=== PATIENT | female | born 1955 | race Caucasian/White ===

== ENCOUNTER → 2018-01-21 | Outpatient (CLI) | payer BC ==
[2018-01-21 17:20] LABS: Basophils % (A) 1 %; Eosinophils # (A) 0.1 k/uL (0-0.7); Eosinophils % (A) 2 %; HCT 40.7 % (34.0-46.0); HGB 13.6 gm/dL (11.4-16.0); Lymphocytes # (A) 1.9 k/uL (1.0-4.8); Lymphocytes % (A) 28 %; MCH 29.1 pg (25.0-35.0); MCHC 33.4 g/dL (31.0-37.0); MCV 87.1 fL (80.0-100.0); Monocytes # (A) 0.4 k/uL (0-1.0); Monocytes % (A) 6 %; Neutrophils # (A) 4.2 k/uL (1.3-7.7); Neutrophils % (A) 62 %; Platelet Count 251 k/uL (150-450); RBC 4.68 m/uL (3.80-5.40); RDW 13.6 % (11.5-15.5); WBC 6.8 k/uL (3.8-10.6)
== END | disposition home or self-care (01) ==
LOC: LABPAT 16:09
PROVIDERS: ATTEND Obstetrics & Gynecology
DX: Z01.812 Encounter for preprocedural laboratory examination (principal)
CPT/HCPCS: 36415; 85025

== ENCOUNTER → 2018-02-18 | Day surgery (SDC) | payer BC ==
--- NOTE | 2018-02-17 20:51 | P.HPOB ---
History of Present Illness H&P Date: 02/17/18 Chief Complaint: Recurrent ASCUS This is a 62-year-old female 3 para 3 who presents for loop electrocautery excision procedure for recurrent ASCUS. Her HPV tests have been negative. She did undergo a LEEP procedure in 2013 that did show SHAHBAZ-1. This is her third Pap smear in a row since the LEEP procedure that has shown ASCUS. Her high-risk HPV is negative. In light of the recurrence, the decision is made to proceed with repeat LEEP procedure with colposcopy. Obstetrical history: . History of 3 vaginal deliveries. Gynecologic history: History of recurrent ASCUS. Review of Systems Constitutional: Denies chills, Denies fever Eyes: denies blurred vision, denies pain Ears, nose, mouth and throat: Denies headache, Denies sore throat Cardiovascular: Denies chest pain, Denies shortness of breath Respiratory: Denies cough Gastrointestinal: Denies abdominal pain, Denies diarrhea, Denies nausea, Denies vomiting Genitourinary: Reports vaginal dryness Menstruation: Reports postmenopausal Musculoskeletal: Denies myalgias Integumentary: Denies pruritus, Denies rash Neurological: Denies numbness, Denies weakness Psychiatric: Reports depression, Denies anxiety Endocrine: Denies fatigue, Denies weight change Past Medical History Additional Past Medical History / Comment(s): Osteopenia, ruptured lumbar disc History of Any Multi-Drug Resistant Organisms: None Reported Past Surgical History: Hernia Repair (Left inguinal) Additional Past Surgical History / Comment(s): Bunion removed from right foot. LEEP procedure, in April 2014 Past Anesthesia/Blood Transfusion Reactions: No Reported Reaction Past Psychological History: Depression Smoking Status: Never smoker Past Alcohol Use History: None Reported Past Drug Use History: None Reported - Past Family History Mother Family Medical History: Cancer Additional Family Medical History / Comment(s): Breast cancer Medications and Allergies Home Medications Medication Instructions Recorded Confirmed Type Calcium Carbonate [Calcium] 600 mg PO BID 02/13/18 02/13/18 History Cholecalciferol (Vitamin D3) 2,000 unit PO BID 02/13/18 02/13/18 History [Vitamin D3] Multivitamins, Thera [Multivitamin 1 tab PO DAILY 02/13/18 02/13/18 History (formulary)] Sertraline [Zoloft] 50 mg PO QAM 02/13/18 02/13/18 History Allergies Allergy/AdvReac Type Severity Reaction Status Date / Time No Known Allergies Allergy Verified 02/13/18 09:53 Exam Osteopathic Statement: *. No significant issues noted on an osteopathic structural exam other than those noted in the History and Physical/Consult. HEENT: Within normal limits Heart: Regular rate and rhythm Lungs: Clear to auscultation bilaterally Abdomen: Soft, nontender Pelvic exam: Cervix is multiparous and atrophic with no visible abnormalities seen. Uterus is small, anteverted, with no adnexal masses or tenderness noted. Extremities: Negative Homans Assessment and Plan (1) ASCUS of cervix with negative high risk HPV Status: Acute Code(s): R87.610 - ATYP SQUAM CELL OF UNDET SIGNFC CYTO SMR CRVX (ASC-US) SNOMED Code(s): 131238363 Plan: Proceed with loop electrocautery excision procedure with colposcopy. I have discussed the risks, benefits, and alternative therapies for the above- mentioned procedure and for both sedation/anesthesia as well as necessary blood products administration, if indicated, as they pertain to this patient. The patient has indicated her understanding and acceptance of the risks and procedures discussed.
[~2018-02-18] MED LIST: ACETIC ACID 15 DROPS/ML DROPS MISCELLANE ONE; BUPIVACAINE (PF) 0.5% 30 ML VIAL SQ ONE; DEXAMETHASONE SOD PHOSPHATE 10 MG/ML 1 ML VIAL IV ONE; FERRIC SUBSULFATE (MONSELS) JAR TOPICAL ONE; KETOROLAC 30 MG/ML 1 ML VIAL ONE; LACTATED RINGERS 1,000 ML IV SCH; LIDOCAINE 1% 20 ML VIAL (10MG/ML) FOR IV START INTRADERMA ONE; LIDOCAINE 1% INJ 10MG/ML (20 ML MDV) ONE; LIDOCAINE 1%-EPI 1:100,000 20 ML VIAL SQ ONE; MIDAZOLAM 2 MG/2 ML VIAL IV PRN; MIDAZOLAM 2 MG/2 ML VIAL ONE; ONDANSETRON 4 MG/2 ML VIAL IVP ONE; PROPOFOL 10 MG/ML 20 ML VIAL IV ONE; Pre Op ABX Message 1 EACH MISC MISCELLANE ONE; SCOPOLAMINE 1.5MG/72HR PATCH TRANSDERM ONE; ePHEDrine SULFATE/0.9% NACL/PF 50 MG/5 ML SYRINGE IV ONE; fentaNYL (PF) 50 MCG/ML 2 ML AMP IV PRN; fentaNYL (PF) 50 MCG/ML 2 ML AMP ONE
[2018-02-18 07:10] VITALS: RESP 16
--- NOTE | 2018-02-18 08:03 | P.OP ---
Date of Procedure: 02/18/18 Preoperative Diagnosis: Recurrent ASCUS Postoperative Diagnosis: Same Procedure(s) Performed: Loop electrocautery excision procedure with colposcopy Anesthesia: other (Mask general) Surgeon: Tania Carpenter Estimated Blood Loss (ml): 2 Pathology: other (Ectocervix with 12 o'clock position marked with a suture and pieces of endocervix) Condition: stable Disposition: same day Indications for Procedure: This is a 62-year-old female 3 para 3 who presents for loop electrocautery excision procedure for recurrent ASCUS. Her HPV tests have been negative. She did undergo a LEEP procedure in 2013 that did show SHAHBAZ-1. This is her third Pap smear in a row since the LEEP procedure that has shown ASCUS. Her high-risk HPV is negative. In light of the recurrence, the decision is made to proceed with repeat LEEP procedure with colposcopy. Operative Findings: Questionable small endocervical polyp was visualized. Uterus was retroverted with no adnexal masses palpated. No abnormalities were seen with acetic acid or Lugol solution. Description of Procedure: The patient was taken to the operating room where she is placed in the dorsal lithotomy position. She is prepped and draped in the normal sterile fashion. Bladder is drained with a catheter and then removed. Examination is performed under anesthesia. Uterus is found to be small, retroverted, with no adnexal masses palpated. Next a coated bivalve speculum was placed in the patient's vagina. The cervix was visualized. Colposcopy was performed using a blue light. Cervix was swabbed with 5% acetic acid solution. No abnormalities were visualized. There was noted to be a questionable small endocervical polyp noted. Next the cervix was swabbed with Lugol solution. No abnormalities were visualized. Next the cervix was circumferentially injected with a 50-50 mixture of 1% lidocaine with epinephrine and half percent Marcaine. Approximately 8 mL were used to anesthetize the cervix using a spinal needle. Next a large loop was used with 35 W of cutting power to swipe from left to right removing the entire ectocervix. Next a smaller loop was used to remove portions of the endocervix using a left to right swipe once it appeared the entire transition zone was removed, the procedure was concluded. A ball-tipped cautery was used to cauterize the bed left behind. Excellent hemostasis was noted. Next Monsel solution was applied. All instruments are removed from the vagina. All sponge and needle counts are correct. The patient is then taken to recovery room in stable condition. The ectocervix is marked at the 12 o' clock position with a suture. The endocervical go pieces are not marked.
[2018-02-18 08:22] VITALS: TEMP 98
[2018-02-18 09:33] VITALS: BP 107/71; PULSE 64
== END | disposition home or self-care (01) ==
LOC: OR 06:34
PROVIDERS: ATTEND Obstetrics & Gynecology
DX: R87.612 Low grade squamous intraepithelial lesion on cytologic smear of cervix (LGSIL) (principal); F32.9 Major depressive disorder, single episode, unspecified; Z79.899 Other long term (current) drug therapy
CPT/HCPCS: 57460; 88342; 88307; J2250; J2405; J2001; J3010; J1885; J2704

== ENCOUNTER → 2018-08-16 | Outpatient (CLI) | payer BC ==
--- NOTE | 2018-08-19 09:51 | MM ---
Reason for exam: screening (asymptomatic). Last mammogram was performed 3 years and 7 months ago. History: Patient is postmenopausal. Family history of premenopausal breast cancer in mother at age 40. Benign stereotactic core biopsy of the right breast, May 18, 2004. Core biopsy of the right breast. Physical Findings: A clinical breast exam by your physician is recommended on an annual basis and results should be correlated with mammographic findings. MG 3D Screening Mammo W/Cad Bilateral CC and MLO view(s) were taken. Prior study comparison: January 08, 2015, mammogram, performed at [facility]. January 07, 2014, CAD bilateral diagnostic mammogram. The breast tissue is extremely dense which could obscure a lesion on mammography. No suspicious calcifications are seen. Previous mammotome biopsy in the right breast. No significant changes when compared with prior studies. ASSESSMENT: Benign, BI-RAD 2 RECOMMENDATION: Routine screening mammogram of both breasts in 1 year.
== END ==
LOC: RADMAMWWP 11:41
PROVIDERS: ATTEND Obstetrics & Gynecology
DX: Z12.31 Encounter for screening mammogram for malignant neoplasm of breast (principal)
CPT/HCPCS: 77063; 77067

== ENCOUNTER → 2019-08-18 | Outpatient (CLI) | payer BC ==
--- NOTE | 2019-08-18 09:29 | MM ---
Reason for exam: screening (asymptomatic). Last mammogram was performed 1 year ago. History: Patient is postmenopausal. Family history of premenopausal breast cancer in mother at age 40. Benign stereotactic core biopsy of the right breast, May 18, 2004. Core biopsy of the right breast. Physical Findings: A clinical breast exam by your physician is recommended on an annual basis and results should be correlated with mammographic findings. MG 3D Screening Mammo W/Cad Bilateral CC and MLO view(s) were taken. Prior study comparison: August 16, 2018, bilateral MG 3d screening mammo w/cad. January 08, 2015, mammogram, performed at [facility]. The breast tissue is heterogeneously dense. This may lower the sensitivity of mammography. No suspicious abnormality. Right central posterior depth asymmetry is stable back to 2014. No significant changes when compared with prior studies. ASSESSMENT: Benign, BI-RAD 2 RECOMMENDATION: Routine screening mammogram of both breasts in 1 year.
== END | disposition home or self-care (01) ==
LOC: RADMAMWWP 09:01
PROVIDERS: ATTEND Obstetrics & Gynecology
DX: Z12.31 Encounter for screening mammogram for malignant neoplasm of breast (principal)
CPT/HCPCS: 77063; 77067

== ENCOUNTER → 2019-09-15 | Outpatient (CLI) | payer BC ==
--- NOTE | 2019-09-17 12:33 | BD ---
EXAMINATION TYPE: Axial Bone Density DATE OF EXAM: 09/15/2019 COMPARISON: 09/10/2017 CLINICAL HISTORY: M 89.9 Height: 63.5 IN Weight: 127 LBS RISK FACTORS HISTORY OF: Active: YES Diet low in dairy products/other sources of calcium: YES Postmenopausal woman: AGE 51 Take estrogen and/or progesterone medications: PREMARIN CREAM FOR 4 YEARS MEDICATIONS: Osteoporosis Medications: NOT NOW Which medication: Actonel How Lon YEARS PREVIOUSLY Additional Medications: CALCIUM, VIT D, SERTRALINE EXAM MEASUREMENTS: Bone mineral densitometry was performed using the [employer] System. Bone mineral density as measured about the Lumbar spine is: ----- L1-L4(G/cm2): 1.110 T Score Values are as follows: ----- L2: -1.2 ----- L3: -0.8 ----- L4: 0.2 ----- L1-L4: -0.6 Bone mineral density has: Increased 2.5% since study of: 09/10/2017 Bone mineral density about the R hip (g/cm2): 0.739 Bone mineral density about the L hip (g/cm2): 0.709 T Score values are as follows: -----R Neck: -2.1 -----L Neck: -2.4 -----R Total: -1.3 -----L Total: -1.6 Bone mineral density has: Decreased -0.4% since study of: 09/10/2017 IMPRESSION: Osteopenia (T Score between -2.5 and -1). There is slightly increased risk of fracture and the patient may be considered for treatment. Re-Screen 2-5 years. NOTE: T-SCORE=SD OF THE YOUNG ADULT MEAN.
== END | disposition home or self-care (01) ==
LOC: RADBDWWP 15:11
PROVIDERS: ATTEND Obstetrics & Gynecology
DX: M85.80 Other specified disorders of bone density and structure, unspecified site (principal); M89.9 Disorder of bone, unspecified; Z13.820 Encounter for screening for osteoporosis; N95.1 Menopausal and female climacteric states
CPT/HCPCS: 77080

== ENCOUNTER → 2020-08-19 | Outpatient (CLI) | payer MEDICARE, BC ==
--- NOTE | 2020-08-20 11:40 | MM ---
Reason for exam: screening (asymptomatic). Last mammogram was performed 1 year ago. History: Patient is postmenopausal. Family history of premenopausal breast cancer in mother at age 40. Benign stereotactic core biopsy of the right breast, May 18, 2004. Core biopsy of the right breast. Physical Findings: A clinical breast exam by your physician is recommended on an annual basis and results should be correlated with mammographic findings. MG 3D Screening Mammo W/Cad Bilateral CC, MLO, and XCCL view(s) were taken. Prior study comparison: August 18, 2019, bilateral MG 3d screening mammo w/cad. August 16, 2018, bilateral MG 3d screening mammo w/cad. The breast tissue is heterogeneously dense. This may lower the sensitivity of mammography. Previous mammotome biopsy in the right breast. There is no discrete abnormality. ASSESSMENT: Benign, BI-RAD 2 RECOMMENDATION: Routine screening mammogram of both breasts in 1 year.
== END | disposition home or self-care (01) ==
LOC: RADMAMWWP 16:02
PROVIDERS: ATTEND Obstetrics & Gynecology
DX: Z12.31 Encounter for screening mammogram for malignant neoplasm of breast (principal); Z80.3 Family history of malignant neoplasm of breast
CPT/HCPCS: 77063; 77067

== ENCOUNTER → 2021-08-22 | Outpatient (CLI) | payer MEDICARE, BC ==
--- NOTE | 2021-08-24 09:08 | MM ---
Reason for exam: screening (asymptomatic). Last mammogram was performed 1 year ago. History: Patient is postmenopausal. Family history of premenopausal breast cancer in mother at age 40. Benign stereotactic core biopsy of the right breast, May 18, 2004. Core biopsy of the right breast. Taking estrogen. Physical Findings: A clinical breast exam by your physician is recommended on an annual basis and results should be correlated with mammographic findings. MG 3D Screening Mammo W/Cad Bilateral CC, MLO, and XCCL view(s) were taken. ML view(s) were taken of the left breast. Prior study comparison: August 19, 2020, bilateral MG 3d screening mammo w/cad. August 18, 2019, bilateral MG 3d screening mammo w/cad. August 16, 2018, bilateral MG 3d screening mammo w/cad. The breast tissue is heterogeneously dense. This may lower the sensitivity of mammography. Previous mammotome biopsy in the right breast. 12 o'clock subareolar left MLO nodularity does not persist on an anterior compression view. No significant changes when compared with prior studies. ASSESSMENT: Benign, BI-RAD 2 RECOMMENDATION: Routine screening mammogram of both breasts in 1 year. Patient should continue monthly self breast exams. A negative report should not preclude additional follow up of suspicious palpable abnormalities.
== END | disposition home or self-care (01) ==
LOC: RADMAMWWP 11:22
PROVIDERS: ATTEND Obstetrics & Gynecology
DX: Z12.31 Encounter for screening mammogram for malignant neoplasm of breast (principal); Z80.3 Family history of malignant neoplasm of breast
CPT/HCPCS: 77063; 77067

== ENCOUNTER → 2021-11-03 | Outpatient (CLI) | payer MEDICARE, BC ==
--- NOTE | 2021-11-03 11:39 | BD ---
EXAMINATION TYPE: Axial Bone Density DATE OF EXAM: 11/03/2021 COMPARISON: NONE CLINICAL HISTORY: Height: 64 Weight: 123.1 FRAX RISK QUESTIONS: Alcohol (3 or more units per day): no Family History (Parent hip fracture): no Glucocorticoids (More than 3mos): no (Ex: prednisone, prednisolone, methylprednisolone, dexamethasone, and hydrocortisone). History of Fracture in Adulthood: no Secondary Osteoporosis: 1. Type 1 Diabetes: no 2. Hyperthyroidism: no 3. Menopause before 45: no 4. Malnutrition: no 5. Chronic liver disease: no Rheumatoid Arthritis: no Current Tobacco Use: no RISK FACTORS HISTORY OF: Surgery to Spine/Hip(right/left)/Wrist (right/left): no Family History of Osteoporosis: no Active: yes Diet low in dairy products/other sources of calcium: yes Postmenopausal woman: yes Lost more than 2 inches in height since high school: no MEDICATIONS: Additional History: EXAM MEASUREMENTS: Bone mineral densitometry was performed using the [employer] System. Bone mineral density as measured about the Lumbar spine is: ----- L1-L4(G/cm2): 1.123 T Score Values are as follows: ----- L2: -1.2 ----- L3: -0.6 ----- L4: 0.3 ----- L1-L4: -0.5 Bone mineral density has: increased 1.2 % since study of: 09.15.2019 Bone mineral density about the R hip (g/cm2): 0.755 Bone mineral density about the L hip (g/cm2): 0.755 T Score values are as follows: -----R Neck: -2.0 -----L Neck: -2.0 -----R Total: -1.2 -----L Total: -1.1 Bone mineral density has: increased 4.4 % since study of: 09.15.2019 IMPRESSION: Osteopenia (T Score between -2.5 and -1). There is slightly increased risk of fracture and the patient may be considered for treatment. Re-Screen 2-5 years. NOTE: T-SCORE=SD OF THE YOUNG ADULT MEAN.
== END | disposition home or self-care (01) ==
LOC: RADBDWWP 09:25
PROVIDERS: ATTEND Internal Medicine
DX: M85.89 Other specified disorders of bone density and structure, multiple sites (principal); Z78.0 Asymptomatic menopausal state
CPT/HCPCS: 77080

== ENCOUNTER → 2022-08-25 | Outpatient (CLI) | payer MEDICARE, BC ==
--- NOTE | 2022-08-25 14:40 | MM ---
Reason for Exam: Screening (asymptomatic). Last screening mammogram was performed 12 month(s) ago. Patient History: Menarche at age 13. First Full-Term at age 24. Postmenopausal. Currently using Estrogen. Core Biopsy on the Right side. 05/18/2004, Benign Stereotactic Core Biopsy on the right side. Mother had breast cancer, age 40. Risk Values: Patti 5 year model risk: 4.8%. NCI Lifetime model risk: 15.8%. Prior Study Comparison: 08/18/2019 Bilateral Screening Mammogram, [facility]. 08/19/2020 Bilateral Screening Mammogram, [facility]. 08/22/2021 Bilateral Screening Mammogram, [facility]. Tissue Density: The breast tissue is extremely dense which could obscure a lesion on mammography. Findings: Analyzed By CAD. There is no suspicious group of microcalcifications or new suspicious mass in either breast. Overall Assessment: Negative, BI-RAD 1 Management: Screening Mammogram of both breasts in 1 year. A clinical breast exam by your physician is recommended on an annual basis and results should be correlated with mammographic findings. [facility] will attempt to contact patient to return for supplemental views and ultrasound if indicated. Electronically signed and approved by: Corey Castillo DO
== END | disposition home or self-care (01) ==
LOC: RADMAMWWP 13:57
PROVIDERS: ATTEND Obstetrics & Gynecology
DX: Z12.31 Encounter for screening mammogram for malignant neoplasm of breast (principal); Z78.0 Asymptomatic menopausal state; Z80.3 Family history of malignant neoplasm of breast
CPT/HCPCS: 77063; 77067

== ENCOUNTER → 2023-05-24 | Outpatient (CLI) | payer MEDICARE, BC ==
[2023-05-24 08:51] LABS: African American GFR (CKD) >90 (>60 ml/min/1.73 sqM); Blood Urea Nitrogen 11 mg/dL (7-17); Non-African American GFR(CKD) >90 (>60 ml/min/1.73 sqM)
--- NOTE | 2023-05-24 10:27 | CT ---
EXAMINATION TYPE: CT abdomen pelvis w con CT DLP: 383.9 mGycm, Automated exposure control for dose reduction was used. DATE OF EXAM: 05/24/2023 10:12 AM COMPARISON: CT abdomen pelvis most recent from 05/26/2013. CLINICAL INDICATION:Female, 67 years old with history of R10.30 LOWER ABDOMINAL PAIN, UNSPECIFIED; Lo wer abdominal/pelvic pain. TECHNIQUE: Standard CT of the abdomen and pelvis following the administration of 100 cc of Isovue 3 00 IV contrast material and oral contrast. Coronal and sagittal reformats were performed. FINDINGS: LOWER CHEST: Posterior dependent subsegmental atelectasis is noted. ABDOMEN LIVER: Subcentimeter hyperattenuating peripheral right hepatic lobe posterior focus likely representi ng a vascular shunt. GALLBLADDER AND BILE DUCTS: Unremarkable. PANCREAS: Unremarkable. SPLEEN: Unremarkable. ADRENAL GLANDS: Unremarkable. KIDNEYS AND URETERS: No evidence of hydronephrosis or renal calculus. The kidneys enhance symmetrical ly. Contrast is demonstrated within both collecting systems on the delayed phase. PELVIS BLADDER: Unremarkable REPRODUCTIVE: Suggested endometrial thickening of 8 mm. Retroverted uterus. ABDOMEN & PELVIS STOMACH AND BOWEL: Stomach and duodenum are unremarkable. Mild amount stool is present throughout the colon. Enteric contrast reaches the distal transverse colon. No focal bowel wall thickening or surro unding inflammatory changes. No evidence of bowel obstruction. PERITONEUM: No evidence of pneumoperitoneum or free fluid. VASCULATURE: No evidence of aortic aneurysm. MUSCULOSKELETAL: No acute osseous abnormalities. Grade 1 anterolisthesis of L4 on L5 without evidence of pars defects. Degenerative disc disease at L5-S1 with disc space narrowing, endplate sclerosis, v acuum disc disease, and anterior osteophytosis. LYMPH NODES: No gross evidence for lymphadenopathy. SOFT TISSUE/ABDOMINAL WALL: Tiny fat filled umbilical hernia. Benign calcification within the right g luteal soft tissues. IMPRESSION: 1. No acute intra-abdominal/pelvic process. 2. Suggested endometrial thickening of 8 mm. Further evaluation with pelvic ultrasound is recommended .
== END | disposition home or self-care (01) ==
LOC: RADCTMAIN 08:08
PROVIDERS: ATTEND Internal Medicine
DX: R10.30 Lower abdominal pain, unspecified (principal)
CPT/HCPCS: 82565; 84520; 74177; 36415; Q9967

== ENCOUNTER → 2023-07-18 | Outpatient (CLI) | payer MEDICARE, BC ==
--- NOTE | 2023-07-18 14:10 | US ---
EXAMINATION TYPE: US pelvic complete DATE OF EXAM: 07/18/2023 COMPARISON: CT 2022 CLINICAL INDICATION: Female, 67 years old with history of R10.2 pelvic pain, R93.89 endometrial thick ening; Pelvic pain, thickened endometrium seen on recent CT TECHNIQUE: . Transabdominal sonographic images of the pelvis were acquired. Transvaginal sonographi c images were medically necessary to better assess the following anatomy: endometrium and ovaries Date of LMP: 15 years ago EXAM MEASUREMENTS: Uterus: 6.2 x 2.9 x 4.3 cm Endometrial Stripe: 1.1 cm Right Ovary: 1.9 x 1.4 x 1.2 cm Left Ovary: not seen 1. Uterus: anteverted, mildly heterogeneous 2. Endometrium: thickened 3. Right Ovary: wnl 4. Left Ovary: not seen 5. Bilateral Adnexa: wnl 6. Posterior cul-de-sac: wnl IMPRESSION: 1. Nonspecific uterine myometrial heterogeneity. 2. Mildly thickened endometrium.
== END | disposition home or self-care (01) ==
LOC: RADUSWWP 13:01
PROVIDERS: ATTEND Obstetrics & Gynecology
DX: R10.2 Pelvic and perineal pain (principal); R93.89 Abnormal findings on diagnostic imaging of other specified body structures
CPT/HCPCS: 76830; 76856

== ENCOUNTER 2023-08-15 06:05 | Day surgery (SDC) | payer MEDICARE, BC ==
--- NOTE | 2023-08-14 14:18 | P.HPOB ---
History of Present Illness H&P Date: 08/14/23 Chief Complaint: Endometrial thickening, pelvic pain This is a 68 y.o. female, 3, para 3, who presents for dilatation and curettage with hysteroscopy due to endometrial thickening noted on CT scan and pelvic ultrasound. CT scan was done for pelvic pain and intestinal issues. She denies any vaginal bleeding. Pelvic ultrasound showed uterus measuring 6.2 x 2.9 x 4.3 cm with endometrial stripe measuring 1.1 cm. Right ovary was normal and left ovary was not well-visualized. OB Hx: . History of 3 vaginal deliveries. 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 Works as a pharmacist. Review of Systems Constitutional: Denies chills, Denies fever Eyes: denies blurred vision, denies pain Ears, nose, mouth and throat: Denies headache, Denies sore throat Cardiovascular: Denies chest pain, Denies shortness of breath Respiratory: Denies cough Gastrointestinal: Reports abdominal pain Genitourinary: Reports pelvic pain Menstruation: Reports amenorrhea, Reports postmenopausal Integumentary: Denies pruritus, Denies rash Neurological: Denies numbness, Denies weakness Psychiatric: Reports depression, Denies anxiety Past Medical History Past Medical History: Hyperlipidemia Additional Past Medical History / Comment(s): Osteopenia, ruptured lumbar disc History of Any Multi-Drug Resistant Organisms: None Reported Past Surgical History: Hernia Repair (L. inguinal) Additional Past Surgical History / Comment(s): Bunion removed from right foot. LEEP procedure, in April 2014 Past Anesthesia/Blood Transfusion Reactions: No Reported Reaction Past Psychological History: Anxiety, Depression Smoking Status: Never smoker Past Alcohol Use History: None Reported Past Drug Use History: None Reported - Past Family History Mother Family Medical History: Cancer Additional Family Medical History / Comment(s): Breast cancer Medications and Allergies Home Medications Medication Instructions Recorded Confirmed Type Calcium Carbonate [Calcium] 600 mg PO DAILY 02/13/18 08/15/23 History Cholecalciferol (Vitamin D3) 2,000 unit PO DAILY 02/13/18 08/15/23 History [Vitamin D3] Multivitamins, Thera [Multivitamin 1 tab PO DAILY 02/13/18 08/15/23 History (formulary)] Sertraline [Zoloft] 50 mg PO HS 02/13/18 08/15/23 History Atorvastatin [Lipitor] 20 mg PO HS 08/10/23 08/15/23 History Allergies Allergy/AdvReac Type Severity Reaction Status Date / Time No Known Allergies Allergy Verified 08/15/23 06:31 Exam Osteopathic Statement: *. No significant issues noted on an osteopathic structural exam other than those noted in the History and Physical/Consult. HEENT: within normal limits Heart: regular rate and rhythm Lungs: clear to auscultation bilaterally Abdomen: soft, non-tender Pelvic: uterus small, anteverted, non-tender with no adnexal masses or tenderness Extremities: negative Jules's Assessment and Plan (1) Endometrial thickening on ultrasound Current Visit: No Status: Acute Code(s): R93.89 - ABNORMAL FINDINGS ON DX IMAGING OF OTH BODY STRUCTURES SNOMED Code(s): 258946431 (2) Pelvic pain Current Visit: No Status: Acute Code(s): R10.2 - PELVIC AND PERINEAL PAIN SNOMED Code(s): 49109836 Plan: Proceed with dilatation and curettage with hysteroscopy. I have discussed the risks, benefits, and alternative therapies for the above- mentioned procedure and for both sedation/anesthesia as well as necessary blood products administration, if indicated, as they pertain to this patient. The patient has indicated her understanding and acceptance of the risks and procedures discussed.
[~2023-08-15 06:05] MED LIST changes: -ACETIC ACID 15 DROPS/ML DROPS MISCELLANE ONE; -BUPIVACAINE (PF) 0.5% 30 ML VIAL SQ ONE; -DEXAMETHASONE SOD PHOSPHATE 10 MG/ML 1 ML VIAL IV ONE; +DEXAMETHASONE SOD PHOSPHATE 4 MG/ML 1 ML VIAL IV ONE; -FERRIC SUBSULFATE (MONSELS) JAR TOPICAL ONE; -KETOROLAC 30 MG/ML 1 ML VIAL ONE; +LIDOCAINE 1% (10MG/ML) FOR IV START INTRADERMA PRN; -LIDOCAINE 1% 20 ML VIAL (10MG/ML) FOR IV START INTRADERMA ONE; -LIDOCAINE 1% INJ 10MG/ML (20 ML MDV) ONE; -LIDOCAINE 1%-EPI 1:100,000 20 ML VIAL SQ ONE; -MIDAZOLAM 2 MG/2 ML VIAL IV PRN; -MIDAZOLAM 2 MG/2 ML VIAL ONE; -PROPOFOL 10 MG/ML 20 ML VIAL IV ONE; -SCOPOLAMINE 1.5MG/72HR PATCH TRANSDERM ONE; +droPERidol 5 MG/2 ML VIAL IVP ONE; -ePHEDrine SULFATE/0.9% NACL/PF 50 MG/5 ML SYRINGE IV ONE; -fentaNYL (PF) 50 MCG/ML 2 ML AMP IV PRN; -fentaNYL (PF) 50 MCG/ML 2 ML AMP ONE
[2023-08-15] MEDS ORDERED: HYDROmorphone 0.5 MG/0.5 ML SYRINGE IVP PRN (07:00)
[2023-08-15] MEDS ORDERED: ePHEDrine 50 MG/ML 1 ML VIAL ONE (07:10)
[2023-08-15] MEDS ORDERED: MIDAZOLAM 2 MG/2 ML VIAL ONE (07:10)
[2023-08-15] MEDS ORDERED: LIDOCAINE 1% INJ 10MG/ML (20 ML MDV) ONE (07:10)
[2023-08-15] MEDS ORDERED: fentaNYL (PF) 50 MCG/ML 2 ML AMP ONE (07:10)
[2023-08-15] MEDS ORDERED: PROPOFOL 10 MG/ML 20 ML VIAL IV ONE (07:10)
[2023-08-15] MEDS ORDERED: KETOROLAC 15 MG/ML 1 ML VIAL ONE (07:10)
--- NOTE | 2023-08-15 07:45 | P.OP ---
Date of Procedure: 08/15/23 Preoperative Diagnosis: Endometrial thickening on ultrasound Pelvic pain Postoperative Diagnosis: Same Procedure(s) Performed: Dilation and curettage with hysteroscopy Anesthesia: other (Mask general) Surgeon: Tania Carpenter Estimated Blood Loss (ml): 2 Pathology: other (Endometrial curettings) Condition: stable Disposition: same day Indications for Procedure: This is a 68 y.o. female, 3, para 3, who presents for dilatation and curettage with hysteroscopy due to endometrial thickening noted on CT scan and pelvic ultrasound. CT scan was done for pelvic pain and intestinal issues. She denies any vaginal bleeding. Pelvic ultrasound showed uterus measuring 6.2 x 2.9 x 4.3 cm with endometrial stripe measuring 1.1 cm. Right ovary was normal and left ovary was not well-visualized. Operative Findings: Uterus is midposition, sounded to 8 cm. Upon hysteroscopy, the background endometrium was noted to be very atrophic. There was a large endometrial polyp noted on a fairly wide stalk. Both tubal ostia are visualized. Description of Procedure: The patient was taken to the operating room where she is placed in the dorsal lithotomy position. She is prepped and draped in the normal sterile fashion. Her bladder is drained with a catheter. Examination is performed under anesthesia. Uterus is found to be mid to anteverted position with no adnexal masses palpated. A weighted speculum was placed in the patient's vagina. And a right angle retractor was used to visualize the cervix. The anterior lip the cervix is grasped with a single-tooth tenaculum. Atrophic cervix and vaginal tissues were noted. Next the cervix was gently dilated with a Guzman dilator until uterine sounding could be carried out. Uterus is sounded to 8 cm. Cervix is then gently dilated until a hysteroscope could be passed. Hysteroscopy was performed using normal saline. The above noted findings are made and pictures are taken. The cervix is then gently dilated slightly further and a polyp forceps was introduced. Minimal tissue was obtained. Next a medium-size sharp curet was introduced and sharp curettage was performed until a gritty texture was noted. A very large polyp was removed. No active bleeding was noted. Single-tooth tenaculum is removed and no bleeding is noted. All instruments are removed from the vagina. All sponge counts are correct. The patient is then taken to recovery room in stable condition.
[2023-08-15] MEDS ORDERED: LACTATED RINGERS 1,000 ML IV ONE (07:57)
[2023-08-15 08:11] VITALS: TEMP 98
[2023-08-15 08:36] VITALS: RESP 18
[2023-08-15 09:01] VITALS: BP 123/73; PULSE 78
== END 2023-08-15 09:15 | disposition home or self-care (01) ==
LOC: OR 06:05
PROVIDERS: ATTEND Obstetrics & Gynecology
DX: N85.8 Other specified noninflammatory disorders of uterus (principal); F32.A Depression, unspecified; E78.5 Hyperlipidemia, unspecified; Z98.890 Other specified postprocedural states; Z79.899 Other long term (current) drug therapy
CPT/HCPCS: 58558; 88305; J2250; J1100; J2405; J2001; J3010; J1885; J2704

== ENCOUNTER → 2023-08-27 | Outpatient (CLI) | payer MEDICARE, BC ==
--- NOTE | 2023-08-28 19:12 | MM ---
Reason for Exam: Screening (asymptomatic). Last screening mammogram was performed 12 month(s) ago. Patient History: Menarche at age 13. First Full-Term at age 24. Postmenopausal. Currently using Estrogen. Core Biopsy on the Right side. 05/18/2004, Benign Stereotactic Core Biopsy on the right side. Mother had breast cancer, age 40. Risk Values: Patti 5 year model risk: 4.9%. NCI Lifetime model risk: 15.2%. Prior Study Comparison: 08/19/2020 Bilateral Screening Mammogram, [facility]. 08/22/2021 Bilateral Screening Mammogram, [facility]. 08/25/2022 Bilateral MG 3D screening mammo w/cad, [facility]. Tissue Density: The breast tissue is heterogeneously dense. This may lower the sensitivity of mammography. Findings: Analyzed By CAD. Microclip right breast from prior biopsy. There is no suspicious group of microcalcifications or new suspicious mass in either breast. Overall Assessment: Benign, BI-RAD 2 Management: Screening Mammogram of both breasts in 1 year. See note below in regards to patient's increased five-year Patti score. Given patient's dense breast tissue, supplementary screening can be considered with breast ultrasound. Patient should continue monthly self-breast exams. A clinical breast exam by your physician is recommended on an annual basis. This exam should not preclude additional follow-up of suspicious palpable abnormalities. Note on Patti scores and lifetime risk: 1. A Patti score greater than 3% is considered moderate risk. If this is the case, consider specialist referral to assess eligibility for a risk reducing agent. 2. If overall lifetime risk for the development of breast cancer is 20% or higher, the patient may qualify for future screening with alternating mammogram and breast MRI. Electronically signed and approved by: Ines Burger M.D. Radiologist
== END | disposition home or self-care (01) ==
LOC: RADMAMWWP 13:49
PROVIDERS: ATTEND Obstetrics & Gynecology
DX: Z12.31 Encounter for screening mammogram for malignant neoplasm of breast (principal); Z78.0 Asymptomatic menopausal state; Z80.3 Family history of malignant neoplasm of breast
CPT/HCPCS: 77063; 77067

== ENCOUNTER → 2024-08-07 | Outpatient (CLI) | payer MEDICARE, BC ==
--- NOTE | 2024-08-08 18:07 | BD ---
EXAMINATION TYPE: Axial Bone Density DATE OF EXAM: 08/07/2024 CLINICAL HISTORY: 69 years old Female. ICD-10 CODE: M85.8 MENOPAUSAL , Z78.0 Height: 63.5 Weight: 121 FRAX RISK QUESTIONS: Family History (Parent hip fracture): no History of Fracture in Adulthood: no Secondary Osteoporosis: no RISK FACTORS HISTORY OF: Surgery to Spine/Hip(right/left)/Wrist (right/left): no MEDICATIONS: Thyroid Medications: no Osteoporosis Medications: no EXAM MEASUREMENTS: Bone mineral densitometry was performed using the [employer] System. Bone mineral density as measured about the Lumbar spine is: ----- L1-L4(G/cm2): 1.046 T Score Values are as follows: ----- L1: -1.4 ----- L2: -1.8 ----- L3: -1.4 ----- L4: -0.4 ----- L1-L4: -1.1 Z Score Values are as follows: ----- L1: 0.6 ----- L2: 0.2 ----- L3: 0.6 ----- L4: 1.6 ----- L1-L4: 0.9 Bone mineral density has: Decreased -6.9% since study of: 11/03/2021 Bone mineral density about the R hip (g/cm2): 0.803 Bone mineral density about the L hip (g/cm2): 0.828 T Score values are as follows: -----R Neck: -2.3 -----L Neck: -2.2 -----R Total: -1.6 -----L Total: -1.4 Z Score values are as follows: -----R Neck: -0.4 -----L Neck: -0.3 -----R Total: 0.0 -----L Total: 0.2 Bone mineral density has: Decreased -5.3% since study of: 11/03/2021 FRAX%s: The graph provided illustrates a 12.0% chance for a major osteoporotic fx and a 2.8% chance f or the hips probability for fx in 10 years time. IMPRESSION: Osteopenia (T Score between -2.5 and -1). There is slightly increased risk of fracture and the patient may be considered for treatment. Re-Screen 2-5 years. NOTE: T-SCORE=SD OF THE YOUNG ADULT MEAN. [facility], , 08/08/2024 6:04 PM
== END | disposition home or self-care (01) ==
LOC: RADBDWWP 16:27
PROVIDERS: ATTEND Internal Medicine
DX: M85.89 Other specified disorders of bone density and structure, multiple sites (principal); Z78.0 Asymptomatic menopausal state
CPT/HCPCS: 77080

== ENCOUNTER → 2024-09-15 | Outpatient (CLI) | payer MEDICARE, BC ==
--- NOTE | 2024-09-15 22:03 | MM ---
Reason for Exam: Screening (asymptomatic). Last mammogram was performed 1 year(s) and 1 month(s) ago. Patient History: Menarche at age 13. First Full-Term at age 24. Postmenopausal. Currently using Estrogen. Core Biopsy on the Right side. 05/18/2004, Benign Stereotactic Core Biopsy on the right side. Mother had breast cancer, age 40. Risk Values: Patti 5 year model risk: 4.9%. NCI Lifetime model risk: 14.5%. Prior Study Comparison: 08/22/2021 Bilateral Screening Mammogram, [facility]. 08/25/2022 Bilateral MG 3D screening mammo w/cad, [facility]. 08/27/2023 Bilateral MG 3D screening mammo w/cad, [facility]. Tissue Density: The breasts are extremely dense, which lowers the sensitivity of mammography. Findings: Analyzed By CAD. The pattern is symmetrical. Core markers within the right breast. Benign calcifications right breast. No significant interval changes are evident. No suspicious groups of microcalcifications, spiculated or lobular masses, architectural distortion or other secondary signs of malignancy are mammographically apparent. Overall Assessment: Benign, BI-RAD 2 Management: Screening Mammogram of both breasts in 1 year. A negative mammogram report should not preclude additional follow up of suspicious palpable abnormalities. Patient should continue monthly self breast exam. A clinical breast exam by your physician is recommended on an annual basis and results should be correlated with mammographic findings. Note on Patti scores and lifetime risk: 1. A Patti score greater than 3% is considered moderate risk. If this is the case, consider specialist referral to assess eligibility for a risk reducing agent. 2. If overall lifetime risk for the development of breast cancer is 20% or higher, the patient may qualify for future screening with alternating mammogram and breast MRI. [facility], , 09/15/2024 10:00 PM. Electronically signed and approved by: Jase Carlton D.O. Radiologis
== END | disposition home or self-care (01) ==
LOC: RADMAMWWP 11:31
PROVIDERS: ATTEND Internal Medicine
DX: Z12.31 Encounter for screening mammogram for malignant neoplasm of breast (principal); Z78.0 Asymptomatic menopausal state; Z80.3 Family history of malignant neoplasm of breast; R92.343 Mammographic extreme density, bilateral breasts; M85.80 Other specified disorders of bone density and structure, unspecified site
CPT/HCPCS: 77063; 77067

== ENCOUNTER → 2024-09-22 | Outpatient (CLI) | payer MEDICARE, BC ==
[~2024-09-22] MED LIST changes: -DEXAMETHASONE SOD PHOSPHATE 4 MG/ML 1 ML VIAL IV ONE; -LACTATED RINGERS 1,000 ML IV SCH; -LIDOCAINE 1% (10MG/ML) FOR IV START INTRADERMA PRN; -ONDANSETRON 4 MG/2 ML VIAL IVP ONE; -Pre Op ABX Message 1 EACH MISC MISCELLANE ONE; +SODIUM CHLORIDE 0.9% 250 ML in EMPTY BAG 1 BAG IV PRN; -droPERidol 5 MG/2 ML VIAL IVP ONE
[2024-09-22 13:54] VITALS: BP 117/79; PULSE 78; RESP 16; TEMP 97.8
[2024-09-22] MEDS: SODIUM CHLORIDE 0.9% 500 ML 500 ML in EMPTY BAG 1 BAG IV PRN (13:55)
[2024-09-22] MEDS: ZOLEDRONIC ACID 5 MG in SODIUM CHLORIDE 0.9% 100 ML IV NR (13:56)
== END ==
LOC: PROCWHC3 13:38
PROVIDERS: ATTEND Internal Medicine
DX: M85.80 Other specified disorders of bone density and structure, unspecified site (principal)
CPT/HCPCS: 96365; J3489